=== PATIENT | female | born 2000 | race Caucasian/White ===

== ENCOUNTER 2020-02-28 11:23 | Emergency (ER) | payer OTHER | END 2020-02-28 12:10 | disposition home or self-care (01) | LOC: ERS 11:23 | DX: Z20.828 Contact with and (suspected) exposure to other viral communicable diseases (principal); F41.9 Anxiety disorder, unspecified; F32.9 Major depressive disorder, single episode, unspecified | CPT/HCPCS: 87635; 99283; U0003 ==